=== PATIENT | male | born 1965 | race American Indian/Alaskan Native ===

== ENCOUNTER 2017-01-26 16:11 | Inpatient (IN) | payer MEDICAID ==
[2017-01-26 16:18] VITALS: BMI 24.7
--- NOTE | 2017-01-26 16:34 | C.PDOC ---
History Of Present Illness 51 year old male transferred to the ED from [facility] for admission to the psych floor. Patient is laying on the stretcher, states he has been having bad thoughts for some time. Patient denies nay other medical issues. Time Seen by Provider: 01/26/17 16:16 Chief Complaint (Nursing): Psychiatric Evaluation History Per: Patient, EMS History/Exam Limitations: no limitations Onset/Duration Of Symptoms: Days Current Symptoms Are (Timing): Still Present Suicide/Self Injury Attempted (Context): None Associated Symptoms: Depression, Suicidal Thoughts Involuntary Hold By: None Recent travel outside of the [place]: No Additional History Per: Patient, Other ([facility]) Past Medical History Reviewed: Historical Data, Nursing Documentation, Vital Signs Vital Signs: Last Vital Signs Temp 98.1 F 01/26/17 16:19 Pulse 77 01/26/17 16:19 Resp 20 01/26/17 16:19 BP 130/75 01/26/17 16:19 Pulse Ox 98 01/26/17 16:47 - Medical History PMH: Bipolar Disorder, Depression Denies: Chronic Kidney Disease Surgical History: No Surg Hx Family History: States: Unknown Family Hx - Social History Hx Alcohol Use: No Hx Substance Use: Yes - Immunization History Hx Tetanus Toxoid Vaccination: No Hx Influenza Vaccination: No Review Of Systems Constitutional: Negative for: Fever, Chills Cardiovascular: Negative for: Chest Pain Respiratory: Negative for: Cough, Shortness of Breath Gastrointestinal: Negative for: Nausea, Vomiting, Abdominal Pain Neurological: Negative for: Weakness, Numbness Psych: Positive for: Depression, Suicidal ideation Physical Exam - Physical Exam Appears: Non-toxic, Other (Flat affect) Skin: Normal Color, Warm, Dry Head: Atraumatic, Normacephalic Eye(s): bilateral: Normal Inspection Nose: No Discharge, No Deformity Oral Mucosa: Moist, No Drooling Tongue: Normal Appearing Lips: Normal Appearing Throat: Normal, No Erythema, No Exudate Neck: Normal ROM, Supple Chest: Symmetrical Cardiovascular: Rhythm Regular, No Murmur Respiratory: Normal Breath Sounds, No Rales, No Rhonchi, No Wheezing Gastrointestinal/Abdominal: Soft, No Tenderness, No Guarding, No Rebound Back: No CVA Tenderness Extremity: Normal ROM, No Pedal Edema, No Calf Tenderness, No Swelling Neurological/Psych: Oriented x3, Normal Speech, Normal Cognition Gait: Steady ED Course And Treatment O2 Sat by Pulse Oximetry: 98 (On RA) Pulse Ox Interpretation: Normal Progress Note: Case discussed with recreation worker who request admission to Dr Sorenson Reassessment Condition: Unchanged - Physician Consult Information Physician Contacted: Aleida Sorenson Outcome Of Conversation: admit Medical Decision Making Medical Decision Making: Impression : 51 y/o male transferred from [place] for psych admission. Patient will be admitted to psych for major depression under Dr. Sorenson Disposition Discussed With Dr.: Aleida Sorenson Doctor Will See Patient In The: Hospital - Disposition Disposition: HOSPITALIZED Disposition Time: 16:00 Condition: STABLE - POA Present On Arrival: None - Clinical Impression Clinical Impression: Moderate major depression, single episode - PA / [employer] / Resident Statement MD/DO has reviewed & agrees with the documentation as recorded. - Scribe Statement The provider has reviewed the documentation as recorded by the Scribe Olvin Boothe All medical record entries made by the Scribe were at my direction and personally dictated by me. I have reviewed the chart and agree that the record accurately reflects my personal performance of the history, physical exam, medical decision making, and the department course for this patient. I have also personally directed, reviewed, and agree with the discharge instructions and disposition. Decision To Admit - Pt Status Changed To: Hospital Disposition Of: Inpatient - Admit Certification Admit to Inpatient:: After my assessment, the patient will require hospitalization for at least two midnights. This is because of the severity of symptoms shown, intensity of services needed, and/or the medical risk in this patient being treated as an outpatient. - InPatient: Physician Admission Certification: I certify that this patient requires 2 or more midnights of care for the following reason:: Depression - . Bed Request Type: Psychiatry Patient Diagnosis: Moderate major depression, single episode
--- NOTE | 2017-01-26 17:31 | PCM.BM ---
<Ashley Andre - Last Filed: 01/26/17 17:28> Treatment Plan Problems - Problems identified on initial assessmt Depression Date Initiated: 01/26/17 Time Initiated: 17:29 Assessment reference: NA Status: Active Substance Abuse Date Initiated: 01/26/17 Time Initiated: 17:29 Assessment reference: NA Status: Active Treatment assets and liabiliti Patient Assests: adapts well, cooperative, ADL independent, physically healthy, negotiates basic needs, cognitively intact Patient Liabilities: live alone (Homeless), financial problems, poor support system, substance abuse (Opiates, Cocaine. Heroin 20 bags daily), medical problems (Hx Cardiac valve repair 2003) - Milieu Protocol Maintain good personal hygiene: daily Encourage regular showers, daily Remind patient to perform daily oral care, other Assist patient to perform ADL's (Self) Conduct patient checks and document Observation sheet: Q15 minutes (Safety) Maintain personal safety: every shift Educate patient to report safety concerns to staff, every shift Monitor environment for contraband/sharps Medication safety: Monitor for expected outcome, potential side effects: every shift, Assess barriers to learning: every shift, Assess readiness for medication education: every shift <Aleida Sorenson - Last Filed: 01/28/17 21:20> - Diagnosis (1) Major depressive disorder, recurrent severe without psychotic features Status: Acute Interventions: 01/28/17 21:20 * Assess/adjust medications daily and /or as needed * See patient on an individual basis 7x/week to assess symptoms of anxiety and depression * Educate patient regarding benefits, side effects and risks of prescribed medications * (2) Opioid use disorder, severe, dependence Status: Acute Interventions: 01/28/17 21:21 * Assess 7x/week regarding severity of withdrawal * Educate regarding risks, benefits, side effects and alternatives of medications * Use Motivational Interviewing for abstinence * Use CBT for relapse prevention * Medication management for withdrawal symptoms * Encourage medication assisted treatment * <Kimberly Ramon - Last Filed: 01/31/17 10:52> Family Contact Family involvement: Family/SO is involved Family contact: Patient declines to allow family contact at present Discharge/Continuing Care - Education Needs Education Needs: Patient Medication, Patient Coping Skills, Patient Placement options, Patient Community resources - Discharge Discharge Criteria: Tolerates medication w/o severe side effects, No longer exhibiting s/s of withdrawal, Reduction of target symptoms - Treatment Team Participation Discussed with Family/SO: No Was Patient/Family/SO present at Treatment Team Meeting: Yes
[2017-01-26] MEDS ORDERED: Aluminum Hydroxide/Magnesium Hydroxide Susp (30 mL) PO PRN (21:40)
--- NOTE | 2017-01-27 09:24 | PCM.PSYCH ---
Initial Psychiatric Evaluation - Initial Psychiatric Evaluation Type of Admission: Voluntary Legal Status: Capacity Chief Complaint (in patient's own words): I was feeling depressed and suicidal.' History of Present Illness and Precipitating Events: Patient is a 51-year-old AAM, who is currently unemployed and homeless, with h/ o depressive disorder and heroin abuse came to the ED with depressed mood and suicidal ideation. Patient states a long history of depressive disorder and heroin dependence. As per the patient he was recently discharged from [facility] few months ago and relapsed on heroin. Pt reports of abusing 20-25 bags daily, last used yesterday. He also reports of abusing xanax, 4-6 mg daily, last abused yesterday. Yesterday he became increasingly depressed and developed suicidal ideation, so he came to the hospital for further evaluation. Patient remained extremely depressed throughout the interview and states feelings of hopelessness , helplessness and worthlessness. He reports poor sleep and anhedonia. He also reports withdrawal symptoms i.e., sweating, headaches, anxiety, joint pains, nausea and abdominal cramps. However he denies any AVH or any psychotic symptoms. PMH: None reported Current Medications: Active Medications Generic Name Dose Route Start Last Admin Trade Name Freq PRN Reason Stop Dose Admin Al Hydrox/Mg Hydrox/Simethicone 30 ml 01/26/17 21:40 Maalox 30 Ml PO TID PRN Indigestion / Heartburn Clonidine HCl 0.1 mg 01/26/17 17:20 01/26/17 23:03 Catapres PO 0.1 mg Q6 PRN Administration WITHDRAWAL SYMPTOMS Hydroxyzine HCl 25 mg 01/26/17 21:42 Atarax PO Q6 PRN Anxiety Loperamide HCl 2 mg 01/26/17 21:40 Imodium PO Q8 PRN Diarrhea Methadone HCl 20 mg 01/27/17 10:00 01/27/17 09:12 Methadone PO 01/31/17 09:59 20 mg DAILY MYRANDA Administration Taper Ondansetron HCl 4 mg 01/26/17 21:40 01/27/17 09:19 Zofran Tab PO 4 mg Q8 PRN Administration Nausea/Vomiting Pneumococcal Polyvalent Vaccine 0.5 ml 01/29/17 10:00 Pneumovax 23 Vaccine IM 01/29/17 10:01 .ONCE ONE Trazodone HCl 50 mg 01/26/17 22:00 01/26/17 22:06 Desyrel PO 50 mg HS MYRANDA Administration Past Psychiatric History - Past Psychiatric History Previous Treatment History: Inpatient Pertinent Medical Hx (Current Medical&Sleep Prob, Allergies): Allergies Allergy/AdvReac Type Severity Reaction Status Date / Time sertraline [From Zoloft] Allergy VOMITING Verified 01/26/17 16:26 No Known Home Med 01/26/17 Review of Systems - Review of Systems All systems: reviewed and no additional remarkable complaints except - Psychiatric Psychiatric: Anxiety, Depression, Hopelessness, Irritability, Suicidal Ideation Mental Status Examination - Personal Presentation Personal Presentation: Looks stated age - Affect Affect: Constricted, Depressed - Motor Activity Motor Activity: Calm - Reliability in Providing Information Reliability in Providing Information: Fair - Speech Speech: Organized - Mood Mood: Depressed, Anxious - Formal Thought Process Formal Thought Process: No Impairment - Obsessions/Compulsions Obsessions: No Compulsions: No - Cognitive Functions Orientation: Person, Place, Situation, Time Sensorium: Alert Attention/Concentration: Attentive Abstract Thinking: [place] Estimate of Intelligence: Below average Judgement: Imparied, as evidence by: Poor judgement, Imparied, as evidence by: Lack of insight into illness - Risk Risk: Suicidal, Withdrawal, Diminished functioning - Limitations Limitations: Living alone DSM 5 DX - DSM 5 DSM 5 Diagnosis: Major depressive disorder recurrent severe without psychotic features Opioid use disorder severe Opioid withdrawal Sedative/ hypnotic use disorder moderate - Recommended/Plan of Treatment Treatment Recommendations and Plan of Treatment: Major depressive disorder recurrent severe without psychotic features CBT Psychoeducation Supportive therapy, group therapy, individual therapy Gabapentin 300 mg PO BID Paxil 10 mg by mouth daily Trazodone 50 mg by mouth daily at bedtime Opioid use disorder severe CBT Psychoeducation Supportive therapy, individual therapy Use [place] for abstinence Opioid withdrawal CBT Psychoeducation Supportive therapy, individual therapy Clonidine when necessary Methadone taper Sedative/ hypnotic use disorder moderate CBT Psychoeducation Supportive therapy, individual therapy Monitor signs and symptoms Use [place] for abstinence - Smoking Cessation Smoking Cessation Initiated: No
--- NOTE | 2017-01-28 15:27 | PCM.PYCHPN ---
Psychiatric Progress Note - Psychiatric Progress Note Patient seen today, length of contact: 17 min Patient Chief Complaint: "I'm not too bad" Problems Identified/Issues Discussed: This patient was seen, chart reviewed, and case discussed with staff. Patient reports that his sleep was okay. Pt states that his appetite is returning. He states that he is still experiencing depressed mood and feelings of hopelessness and helplessness. He denies suicidal ideations and homicidal ideations. He denies any auditory or visual hallucination. Patient appears slightly disheveled. He is cooperative. Pt has been participating in groups and has been interacting with the staff and other patients. Patient is compliant with medications and denies any side effects. Symptoms are improving but need more time to stabilize. Support and psychoeducation given. Medication Change: Yes (methaodne taper) Medical Record Reviewed: Yes Mental Status Examination - Cognitive Function Orientation: Person, Place, Situation, Time Memory: Intact Attention: WNL Concentration: Poor Association: WNL Fund of Knowledge: WNL - Mood Mood: Depressed, Anxious - Affect Affect: Constricted - Speech Speech: Soft - Formal Thought Process Formal Thought Process: No Impairment - Suicidal Ideation Suicidal Ideation: No - Homicidal Ideation Homicidal Ideation: No Goal/Treatment Plan - Goal/Treatment Plan Need for Continued Stay: Severe depression anxiety, Discharge may exacerbated symptoms, Severe functional impairment Progress Toward Problem(s) and Goals/Treatment Plan: Major depressive disorder recurrent severe without psychotic features CBT Psychoeducation Supportive therapy, group therapy, individual therapy Gabapentin 300 mg PO BID Paxil 10 mg by mouth daily Trazodone 50 mg by mouth daily at bedtime Opioid use disorder severe CBT Psychoeducation Supportive therapy, individual therapy Use [place] for abstinence Opioid withdrawal CBT Psychoeducation Supportive therapy, individual therapy Clonidine when necessary Methadone taper Sedative/ hypnotic use disorder moderate CBT Psychoeducation Supportive therapy, individual therapy Monitor signs and symptoms Use [place] for abstinence - Smoking Cessation Smoking Cessation Initiated: No
[2017-01-29] MEDS ORDERED: Influenza Vaccine 60 mcg/0.5 mL SYR (4YR UP) IM ONE (10:00)
[2017-01-29] MEDS ORDERED: Pneumococcal 23-Valent Vaccine IM ONE (10:00)
--- NOTE | 2017-01-29 12:01 | PCM.PYCHPN ---
Psychiatric Progress Note - Psychiatric Progress Note Patient seen today, length of contact: 17 min Patient Chief Complaint: "I'm not too bad" Problems Identified/Issues Discussed: This patient was seen, chart reviewed, and case discussed with staff. Patient reports that his sleep was okay. Pt states that his appetite is returning. He states that he is still experiencing depressed mood and feelings of hopelessness and helplessness. He denies suicidal ideations and homicidal ideations. He denies any auditory or visual hallucination. Patient appears slightly disheveled. He is cooperative. Pt has been participating in groups and has been interacting with the staff and other patients. Patient is compliant with medications and denies any side effects. Symptoms are improving but need more time to stabilize. Support and psychoeducation given. Medication Change: Yes (methaodne taper) Medical Record Reviewed: Yes Mental Status Examination - Cognitive Function Orientation: Person, Place, Situation, Time Memory: Intact Attention: WNL Concentration: Poor Association: WNL Fund of Knowledge: WNL - Mood Mood: Depressed, Anxious - Affect Affect: Constricted - Speech Speech: Soft - Formal Thought Process Formal Thought Process: No Impairment - Suicidal Ideation Suicidal Ideation: No - Homicidal Ideation Homicidal Ideation: No Goal/Treatment Plan - Goal/Treatment Plan Need for Continued Stay: Severe depression anxiety, Discharge may exacerbated symptoms, Severe functional impairment Progress Toward Problem(s) and Goals/Treatment Plan: Major depressive disorder recurrent severe without psychotic features CBT Psychoeducation Supportive therapy, group therapy, individual therapy Gabapentin 300 mg PO BID Paxil 10 mg by mouth daily Trazodone 50 mg by mouth daily at bedtime Opioid use disorder severe CBT Psychoeducation Supportive therapy, individual therapy Use [place] for abstinence Opioid withdrawal CBT Psychoeducation Supportive therapy, individual therapy Clonidine when necessary Methadone taper Sedative/ hypnotic use disorder moderate CBT Psychoeducation Supportive therapy, individual therapy Monitor signs and symptoms Use [place] for abstinence
--- NOTE | 2017-02-02 09:29 | PCM.PYCHPN ---
Psychiatric Progress Note - Psychiatric Progress Note Patient seen today, length of contact: 17 min Patient Chief Complaint: "I'm still feeling depressed" Problems Identified/Issues Discussed: This patient was seen, chart reviewed, and case discussed with staff. Patient reports improvement in his mood, and improvement in the feelings of hopelessness and helplessness. He also reports improvement in the withdrawal symptoms. He denies any auditory or visual hallucination. Pt has been participating in groups and has been interacting with the staff and other patients. He wants to go to the [facility] for inpt rehab. Patient is compliant with medications and denies any side effects. Symptoms are improving but need more time to stabilize. Support and psychoeducation given. Medication Change: Yes (methaodne taper, increase paxil) Medical Record Reviewed: Yes Mental Status Examination - Cognitive Function Orientation: Person, Place, Situation, Time Memory: Intact Attention: WNL Concentration: Poor Association: WNL Fund of Knowledge: WNL - Mood Mood: Depressed, Anxious - Affect Affect: Constricted - Speech Speech: Soft - Formal Thought Process Formal Thought Process: No Impairment - Suicidal Ideation Suicidal Ideation: No - Homicidal Ideation Homicidal Ideation: No Goal/Treatment Plan - Goal/Treatment Plan Need for Continued Stay: Severe depression anxiety, Discharge may exacerbated symptoms, Severe functional impairment Progress Toward Problem(s) and Goals/Treatment Plan: Major depressive disorder recurrent severe without psychotic features CBT Psychoeducation Supportive therapy, group therapy, individual therapy Gabapentin 300 mg PO BID Paxil 200 mg by mouth daily Trazodone 50 mg by mouth daily at bedtime Opioid use disorder severe CBT Psychoeducation Supportive therapy, individual therapy Use [place] for abstinence Opioid withdrawal CBT Psychoeducation Supportive therapy, individual therapy Clonidine when necessary Methadone taper Sedative/ hypnotic use disorder moderate CBT Psychoeducation Supportive therapy, individual therapy Monitor signs and symptoms Use [place] for abstinence - Smoking Cessation Smoking Cessation Initiated: No
--- NOTE | 2017-02-03 22:19 | PCM.PYCHPN ---
Psychiatric Progress Note - Psychiatric Progress Note Patient seen today, length of contact: 15 minute Patient Chief Complaint: I am feeling much better. Problems Identified/Issues Discussed: Patient seen, chart reviewed, case discussed with the staff. Issues related to illness and treatment were discussed with the patient and staff. Reported compliant with treatment with no adverse effects. Feeling much better. Aftercare discussed with the patient. Patient was awake, alert and oriented 3. Denied any delusions, auditory or visual hallucinations, suicidal ideations or homicidal ideations at the time of evaluation.. Diagnostic Results: Reviewed DSM 5 Symptoms Update: Improving with treatment Medication Change: No Medical Record Reviewed: Yes Mental Status Examination - Cognitive Function Orientation: Person, Place, Situation, Time Memory: Intact Attention: WNL Concentration: WNL Association: [facility] Fund of Knowledge: [facility] Decription of patient's judgement and insights: Fair - Mood Mood: Depressed (Much less than before) - Affect Affect: Other (Appropriate) - Speech Speech: Soft - Formal Thought Process Formal Thought Process: No Impairment Psychotic Thoughts and Behaviors: None - Suicidal Ideation Suicidal Ideation: No - Homicidal Ideation Homicidal Ideation: No Goal/Treatment Plan - Goal/Treatment Plan Need for Continued Stay: Remain at risks for inpatient hospitalization, Discharge may exacerbated symptoms, Severe functional impairment Progress Toward Problem(s) and Goals/Treatment Plan: Patient education Supportive therapy Continue treatment as before Patient will go to [facility] for follow-up care after discharge from the hospital. Estimated Date of D/C: 02/05/17 - Smoking Cessation Smoking Cessation Initiated: No
--- NOTE | 2017-02-04 10:30 | PCM.BM ---
<Kimberly Ramon - Last Filed: 02/04/17 10:30> Treatment Plan Problems - Problems identified on initial assessmt Depression Date Initiated: 01/26/17 Time Initiated: Assessment reference: NA Status: Active Substance Abuse Date Initiated: 01/26/17 Time Initiated: Assessment reference: NA Status: Active Treatment assets and liabiliti Patient Assests: adapts well, cooperative, ADL independent, physically healthy, negotiates basic needs, cognitively intact Patient Liabilities: live alone (Homeless), financial problems, poor support system, substance abuse (Opiates, Cocaine. Heroin 20 bags daily), medical problems (Hx Cardiac valve repair 2003) - Milieu Protocol Maintain good personal hygiene: daily Encourage regular showers, daily Remind patient to perform daily oral care, other Assist patient to perform ADL's (Self) Conduct patient checks and document Observation sheet: Q15 minutes (Safety) Maintain personal safety: every shift Educate patient to report safety concerns to staff, every shift Monitor environment for contraband/sharps Medication safety: Monitor for expected outcome, potential side effects: every shift, Assess barriers to learning: every shift, Assess readiness for medication education: every shift Milieu Narrative: Patient education Supportive therapy Continue treatment as before Patient will go to [facility] for follow-up care after discharge from the hospital. Family Contact Family involvement: Family/SO is involved Family contact: Patient declines to allow family contact at present Discharge/Continuing Care - Education Needs Education Needs: Patient Medication, Patient Coping Skills, Patient Placement options, Patient Community resources - Discharge Discharge Criteria: Tolerates medication w/o severe side effects, No longer exhibiting s/s of withdrawal, Reduction of target symptoms - Treatment Team Participation Patient/Family/SO Statement: Patient education Supportive therapy Continue treatment as before Patient will go to [facility] for follow-up care after discharge from the hospital. Discussed with Family/SO: No Was Patient/Family/SO present at Treatment Team Meeting: Yes Treatment Plan Review - Problem Depression Time Initiated: Substance Abuse Time Initiated: - Discharge / Continuing Care Discharge to:: Substance Abuse Rehab Behavioral Health Services: Residential treatment Health Needs: Medications/Rx, Alcohol/Drug treatment <Aleida Sorenson - Last Filed: 02/04/17 11:13> - Diagnosis (1) Major depressive disorder, recurrent severe without psychotic features Status: Acute Interventions: 02/04/17 11:13 * Assess/adjust medications daily and /or as needed * See patient on an individual basis 7x/week to assess symptoms of depression * Monitor for side effects & effectiveness of medications * (2) Opioid use disorder, severe, dependence Status: Acute Interventions: 02/04/17 11:13 * Assess 7x/week regarding severity of withdrawal * Educate regarding risks, benefits, side effects and alternatives of medications * Use Motivational Interviewing for abstinence * Use CBT for relapse prevention * Medication management for withdrawal symptoms * Encourage medication assisted treatment * <Sheri Ulloa - Last Filed: 02/05/17 11:42> Treatment Plan Review - Problem Depression Date Initiated: 02/05/17 Time Initiated: 11:41 Progress toward outcomes: improved Substance Abuse Date Initiated: 02/05/17 Time Initiated: 11:41 Progress toward outcomes: improved
[2017-02-05 07:41] VITALS: RESP 20; TEMP 97.6; O2SAT 96
[2017-02-05 16:23] VITALS: BP 138/87; PULSE 68
--- NOTE | 2017-02-05 21:37 | PCM.PYCHPN ---
Psychiatric Progress Note - Psychiatric Progress Note Patient seen today, length of contact: 15 minute Patient Chief Complaint: "I'm still feeling depressed" Problems Identified/Issues Discussed: This patient was seen, chart reviewed, and case discussed with staff. Patient reports improvement in his mood, and improvement in the feelings of hopelessness and helplessness. He also reports improvement in the withdrawal symptoms. He denies any auditory or visual hallucination. Pt has been participating in groups and has been interacting with the staff and other patients. He wants to go to the [facility] for inpt rehab. Patient is compliant with medications and denies any side effects. Symptoms are improving but need more time to stabilize. Support and psychoeducation given. Medication Change: No Medical Record Reviewed: Yes Mental Status Examination - Cognitive Function Orientation: Person, Place, Situation, Time Memory: Intact Attention: WNL Concentration: WNL Association: WNL Fund of Knowledge: WN - Mood Mood: Depressed (Much less than before) - Affect Affect: Other (Appropriate) - Speech Speech: Soft - Formal Thought Process Formal Thought Process: No Impairment - Suicidal Ideation Suicidal Ideation: No - Homicidal Ideation Homicidal Ideation: No Goal/Treatment Plan - Goal/Treatment Plan Need for Continued Stay: Remain at risks for inpatient hospitalization, Discharge may exacerbated symptoms, Severe functional impairment Progress Toward Problem(s) and Goals/Treatment Plan: Major depressive disorder recurrent severe without psychotic features CBT Psychoeducation Supportive therapy, group therapy, individual therapy Gabapentin 300 mg PO BID Paxil 200 mg by mouth daily Trazodone 50 mg by mouth daily at bedtime Opioid use disorder severe CBT Psychoeducation Supportive therapy, individual therapy Use [place] for abstinence Opioid withdrawal CBT Psychoeducation Supportive therapy, individual therapy Clonidine when necessary Methadone taper Sedative/ hypnotic use disorder moderate CBT Psychoeducation Supportive therapy, individual therapy Monitor signs and symptoms Use [place] for abstinence Estimated Date of D/C: 02/05/17
--- NOTE | 2017-02-05 21:45 | PCM.PYCHPN ---
Psychiatric Progress Note - Psychiatric Progress Note Patient seen today, length of contact: 15 minute Patient Chief Complaint: "I'm still feeling depressed" Problems Identified/Issues Discussed: This patient was seen, chart reviewed, and case discussed with staff. Patient reports improvement in his mood, and improvement in the feelings of hopelessness and helplessness. He also reports improvement in the withdrawal symptoms. He denies any auditory or visual hallucination. Pt has been participating in groups and has been interacting with the staff and other patients. He wants to go to the [facility] for inpt rehab. Patient is compliant with medications and denies any side effects. Symptoms are improving but need more time to stabilize. Support and psychoeducation given. Medication Change: No Medical Record Reviewed: Yes Mental Status Examination - Cognitive Function Orientation: Person, Place, Situation, Time Memory: Intact Attention: WNL Concentration: WNL Association: WNL Fund of Knowledge: WN - Mood Mood: Depressed (Much less than before) - Affect Affect: Other (Appropriate) - Speech Speech: Soft - Formal Thought Process Formal Thought Process: No Impairment - Suicidal Ideation Suicidal Ideation: No - Homicidal Ideation Homicidal Ideation: No Goal/Treatment Plan - Goal/Treatment Plan Need for Continued Stay: Remain at risks for inpatient hospitalization, Discharge may exacerbated symptoms, Severe functional impairment Progress Toward Problem(s) and Goals/Treatment Plan: Major depressive disorder recurrent severe without psychotic features CBT Psychoeducation Supportive therapy, group therapy, individual therapy Gabapentin 300 mg PO BID Paxil 200 mg by mouth daily Trazodone 50 mg by mouth daily at bedtime Opioid use disorder severe CBT Psychoeducation Supportive therapy, individual therapy Use [place] for abstinence Opioid withdrawal CBT Psychoeducation Supportive therapy, individual therapy Clonidine when necessary Methadone taper Sedative/ hypnotic use disorder moderate CBT Psychoeducation Supportive therapy, individual therapy Monitor signs and symptoms Use [place] for abstinence Estimated Date of D/C: 02/05/17
--- NOTE | 2017-02-06 10:50 | PCM.PYCHDC ---
Mental Status Examination - Mental Status Examination Orientation: Person, Place, Situation, Time Memory: Intact Mood: Neutral Affect: Constricted Speech: Soft Attention: WNL Concentration: WNL Association: WNL Fund of Knowledge: WNL Formal Thought Process: No Impairment Description of patient's judgement and insight: GOOD, FAIR Psychotic Thoughts and Behaviors: denies any AVH Suicidal Ideation: No Current Homicidal Ideation?: No Discharge Summary - Discharge Note Reason for Hospitalization: Patient is a 51-year-old AAM, who is currently unemployed and homeless, with h/ o depressive disorder and heroin abuse came to the ED with depressed mood and suicidal ideation. Patient states a long history of depressive disorder and heroin dependence. As per the patient he was recently discharged from [facility] few months ago and relapsed on heroin. Pt reports of abusing 20-25 bags daily, last used yesterday. He also reports of abusing xanax, 4-6 mg daily, last abused yesterday. Yesterday he became increasingly depressed and developed suicidal ideation, so he came to the hospital for further evaluation. Patient remained extremely depressed throughout the interview and states feelings of hopelessness , helplessness and worthlessness. He reports poor sleep and anhedonia. He also reports withdrawal symptoms i.e., sweating, headaches, anxiety, joint pains, nausea and abdominal cramps. However he denies any AVH or any psychotic symptoms. Consultations:: List each consultation separately and include: 1. Reason for request. 2. Findings. 3. Follow-up Summary of Hospital Course include:: 1. Description of specific treatment plan utilized for patients during their course of treatmen. 2. Summarize the time- course for resolution of acute symptoms and/or regressed behaviors. 3. Describe issues identified and worked on during hospitalization. 4. Describe medication utilized. 5. Describe medical problems identified and treated. 6. Reassessment of suicide risk Summary of Hospital Course: During the course of his stay, patient (pt) started progressively improving and he no longer remained irritable, depressed, and suicidal. His mood and anxiety were improved and he started attending groups and meetings and started socializing. Patient denied any feelings of hopelessness, helplessness, and worthlessness, denied any problem with the sleep or appetite, denied suicidal ideation or homicidal ideation. Pt denied any auditory or visual hallucinations. Some changes were made in his current medications and patient was discharged on following medications. He tolerated these medications very well and denied any side effects. Pt is to attend [facility] rehab in [place] today and will follow-up with [facility] on 02/26/17 at 9:30 a.m. - Diagnosis (1) Major depressive disorder, recurrent severe without psychotic features Status: Acute (2) Opioid use disorder, severe, dependence Status: Acute - Final Diagnosis (DSM 5) Condition upon Discharge: STABLE DSM 5: Major depressive disorder recurrent severe without psychotic features Opioid use disorder severe Opioid withdrawal Sedative/ hypnotic use disorder moderate Disposition: HOME/ ROUTINE Follow-up Treatment Plan: Education: Pt was educated and counseled about the risks and benefits of taking and not taking medications. Pt was educated and counseled about the risks of drinking and abusing drugs. Pt was educated and counseled to go to the ER or call 911 if pt develop suicidal ideation or homicidal ideation, worsening of symptoms or severe side effects of the meds. Prescriptions/Medication Reconciliation: Gabapentin [Neurontin] 300 mg PO BID #60 cap PARoxetine [Paxil] 40 mg PO DAILY #30 tab traZODone [Desyrel] 50 mg PO HS #30 tab - Smoking Cessation Smoking Cessation Medication prescribed: No - Antipsychotic Medications Pt discharged on 2 or more routine antipsychotic medications: No
== END 2017-02-06 12:40 | disposition home or self-care (01) | DRG 430 ==
LOC: C.ER 16:11 → C.9E 16:27 → C.5E 16:43
PROVIDERS: ADMIT Psychiatry & Neurology Psychiatry; ATTEND Psychiatry & Neurology Psychiatry
PROC: GZ3ZZZZ Medication Management (ICD-10-PCS; principal; 2017-01-26)
PROC: GZHZZZZ Group Psychotherapy (ICD-10-PCS; 2017-01-26)
PROC: GZ56ZZZ Individual Psychotherapy, Supportive (ICD-10-PCS; 2017-01-26)
PROC: HZ2ZZZZ Detoxification Services for Substance Abuse Treatment (ICD-10-PCS; 2017-01-26)
PROC: HZ59ZZZ Individual Psychotherapy for Substance Abuse Treatment, Supportive (ICD-10-PCS; 2017-01-26)
DX: F33.2 Major depressive disorder, recurrent severe without psychotic features (principal); R45.851 Suicidal ideations; F11.23 Opioid dependence with withdrawal; F13.10 Sedative, hypnotic or anxiolytic abuse, uncomplicated; F31.9 Bipolar disorder, unspecified; F41.9 Anxiety disorder, unspecified; F17.210 Nicotine dependence, cigarettes, uncomplicated; Z59.0 Homelessness

== ENCOUNTER 2018-05-19 16:53 | Inpatient (IN) | payer OTHER, MEDICAID ==
--- NOTE | 2018-05-19 17:34 | C.PDOC ---
History Of Present Illness 52 y/o male with a PMHx of CAD, valve replacement, hx of depression in the past, stopped taking his antidepressant 1 year ago, presents today complaining of feeling depressed with suicidal ideation for the last 3 months. + Plan. At p resent time, pt Denies any active physical complaints, denies headache, dizziness, CP, SOB, dyspnea, palpitation,a bd. pain, N/V. Appears AAO#3, not in any apparent distress. <Patricia Hamilton - Last Filed: 05/19/18 18:57> History Per: Patient History/Exam Limitations: no limitations Onset/Duration Of Symptoms: Days Current Symptoms Are (Timing): Still Present Associated Symptoms: Depression, Suicidal Thoughts, Suicidal Plan <Patricia Hamilton - Last Filed: 05/19/18 18:57> <Oren Fry - Last Filed: 05/20/18 02:02> Time Seen by Provider: 05/19/18 16:56 Chief Complaint (Nursing): Psychiatric Evaluation Past Medical History Reviewed: Historical Data, Nursing Documentation, Vital Signs - Medical History PMH: Bipolar Disorder, Depression Denies: Chronic Kidney Disease - [facility] DETOXIFICATION SERVICES FOR SUBSTANCE ABUSE TREATMENT (01/26/17) GROUP PSYCHOTHERAPY (01/26/17) INDIV PSYCHOTHERAPY FOR SUBSTANCE ABUSE TREATMENT, SUPPORT (01/26/17) INDIVIDUAL PSYCHOTHERAPY, SUPPORTIVE (01/26/17) MEDICATION MANAGEMENT (01/26/17) Family History: States: Unknown Family Hx - Social History Hx Alcohol Use: No Hx Substance Use: Yes - Immunization History Hx Tetanus Toxoid Vaccination: No Hx Influenza Vaccination: No <Patricia Hamilton - Last Filed: 05/19/18 18:57> Vital Signs: Last Vital Signs Temp 98.4 F 05/19/18 21:09 Pulse 63 05/19/18 21:09 Resp 18 05/19/18 21:09 BP 117/63 05/19/18 21:09 Pulse Ox 95 05/19/18 21:09 - [facility] DETOXIFICATION SERVICES FOR SUBSTANCE ABUSE TREATMENT (01/26/17) GROUP PSYCHOTHERAPY (01/26/17) INDIV PSYCHOTHERAPY FOR SUBSTANCE ABUSE TREATMENT, SUPPORT (01/26/17) INDIVIDUAL PSYCHOTHERAPY, SUPPORTIVE (01/26/17) MEDICATION MANAGEMENT (01/26/17) <Oren Fry - Last Filed: 05/20/18 02:02> Review Of Systems Except As Marked, All Systems Reviewed And Found Negative. Constitutional: Negative for: Fever, Chills Cardiovascular: Negative for: Chest Pain Respiratory: Negative for: Shortness of Breath Gastrointestinal: Negative for: Vomiting, Abdominal Pain Genitourinary: Negative for: Dysuria, Hematuria Musculoskeletal: Negative for: Back Pain Neurological: Negative for: Weakness, Numbness, Dizziness Psych: Positive for: Depression, Suicidal ideation (with +plan) <Patricia Hamilton - Last Filed: 05/19/18 18:57> Physical Exam - Physical Exam Appears: Non-toxic, No Acute Distress Skin: Normal Color, Warm Head: Normacephalic Eye(s): bilateral: PERRL Oral Mucosa: Moist Neck: Trachea Midline, Supple Cardiovascular: Rhythm Regular, No Murmur, No JVD Respiratory: No Decreased Breath Sounds, No Accessory Muscle Use, No Rhonchi, No Wheezing, No Plerual Rub Gastrointestinal/Abdominal: Soft, No Tenderness, No Distention Back: No CVA Tenderness Extremity: No Pedal Edema, No Swelling Neurological/Psych: Oriented x3, Normal Speech Gait: Steady <Patricia Hamilton - Last Filed: 05/19/18 18:57> ED Course And Treatment - Laboratory Results Result Diagrams: 05/19/18 17:36 05/19/18 17:36 Lab Interpretation: No Acute Changes ECG: Interpreted By Me, Viewed By Me ECG Interpretation: Abnormal Interpretation Of ECG: SR@58/min, NAD, RBBB, T wave inversion in II, III, AVF. No previous EKg available O2 Sat by Pulse Oximetry: 98 Pulse Ox Interpretation: Normal Progress Note: Labs and EKG ordered for medical clearance. Pt placed on 1:1 OBS, pending crisis eval. Blood work review, appears without acute abnormalities. Troponin I- negative. EKg review and appears abnormal, no previous study available to compare. Case discussed with , SInce pt is asymptomatic , pt is med cleared with optional med consult. Case discussed with and consult placed. Pt is med cleared for psych eval. <Patricia Hamilton - Last Filed: 05/19/18 18:57> - Laboratory Results Result Diagrams: 05/19/18 17:36 05/19/18 17:36 Lab Results: Troponin I < 0.0120 ng/mL (0.00-0.120) 05/19/18 17:36 Total Bilirubin 0.3 mg/dL (0.2-1.3) 05/19/18 17:36 AST 20 U/L (17-59) 05/19/18 17:36 ALT 24 U/L (21-72) 05/19/18 17:36 Alkaline Phosphatase 54 U/L (38-126) 05/19/18 17:36 Total Protein 6.7 g/dL (6.3-8.3) 05/19/18 17:36 Albumin 4.0 g/dL (3.5-5.0) 05/19/18 17:36 Globulin 2.8 gm/dL (2.2-3.9) 05/19/18 17:36 Albumin/Globulin Ratio 1.4 (1.0-2.1) 05/19/18 17:36 Urine Color Yellow (YELLOW) 05/19/18 19:11 Urine Clarity Clear (Clear) 05/19/18 19:11 Urine pH 5.0 (5.0-8.0) 05/19/18 19:11 Ur Specific [place] 1.025 (1.003-1.030) 05/19/18 19:11 Urine Protein Negative mg/dL (NEGATIVE) 05/19/18 19:11 Urine Glucose (UA) Normal mg/dL (Normal) 05/19/18 19:11 Urine Ketones Negative mg/dL (NEGATIVE) 05/19/18 19:11 Urine Blood Negative (NEGATIVE) 05/19/18 19:11 Urine Nitrate Negative (NEGATIVE) 05/19/18 19:11 Urine Bilirubin Negative (NEGATIVE) 05/19/18 19:11 Urine Urobilinogen Normal mg/dL (0.2-1.0) 05/19/18 19:11 Ur Leukocyte Esterase Neg Joe/uL (Negative) 05/19/18 19:11 Urine WBC (Auto) 1 /hpf (0-5) 05/19/18 19:11 Urine RBC (Auto) 1 /hpf (0-3) 05/19/18 19:11 <Oren Fry - Last Filed: 05/20/18 02:02> Medical Decision Making Medical Decision Making: case endorsed pending crisis eval. accepted dr woodruff <Oren Fry - Last Filed: 05/20/18 02:02> Disposition - Disposition Disposition Time: 18:37 <Patricia Hamilton - Last Filed: 05/19/18 18:57> <Oren Fry - Last Filed: 05/20/18 02:02> - Disposition Disposition: HOSPITALIZED Condition: STABLE - Clinical Impression Clinical Impression: Moderate major depression, single episode, Suicide attempt, EKG, abnormal - PA / RN SUPPLEMENTAL / Resident Statement MD/DO has reviewed & agrees with the documentation as recorded. - Scribe Statement The provider has reviewed the documentation as recorded by the Scribe Nancy Mata All medical record entries made by the Scribe were at my direction and personally dictated by me. I have reviewed the chart and agree that the record accurately reflects my personal performance of the history, physical exam, medical decision making, and the department course for this patient. I have also personally directed, reviewed, and agree with the discharge instructions and disposition. <Patricia Hamilton - Last Filed: 05/19/18 18:57> Physician Patient Turnover Patient Signed Over To: Oren Fry Handoff Comments: PES eval, dispo <Patricia Hamilton - Last Filed: 05/19/18 18:57> Decision To Admit <Patricia Hamilton - Last Filed: 05/19/18 18:57> - Pt Status Changed To: Hospital Disposition Of: Inpatient - Admit Certification Admit to Inpatient:: After my assessment, the patient will require hospitalization for at least two midnights. This is because of the severity of symptoms shown, intensity of services needed, and/or the medical risk in this patient being treated as an outpatient. - InPatient: Physician Admission Certification: I certify that this patient requires 2 or more midnights of care for the following reason:: needs detox - . Bed Request Type: Psychiatry Admitting Physician: José Woodruff <Oren Fry - Last Filed: 05/20/18 02:02> - . Patient Diagnosis: Moderate major depression, single episode, Suicide attempt, EKG, abnormal
[2018-05-19 17:40] LABS: BASO % 0.6 % (0.0-2.0); EOS # 0.1 K/uL (0.0-0.7); HEMOGLOBIN 14.1 g/dL (12.0-18.0); LYMPH # 1.9 K/uL (1.0-4.3); LYMPH % 25.8 % (20.0-40.0); MEAN CELL VOLUME 90.3 fL (80.0-94.0); MEAN CORPUSCULAR HEMOGLOBIN 30.7 pg (27.0-31.0); MEAN PLATELET VOLUME 8.6 fL (7.2-11.7); MONO # 0.5 K/uL (0.0-0.8); MONO % 6.3 % (0.0-10.0); NEUT % 66.3 % (50.0-75.0); NRBC % 0.1 % (0.0-2.0); RBC 4.6 Mil/uL (4.40-5.90); RED CELL DISTRIBUTION WIDTH 13.8 % (11.5-14.5); WHITE BLOOD COUNT 7.5 K/uL (4.8-10.8)
[2018-05-19 17:56] LABS: ALB/GLOB RATIO 1.4 (1.0-2.1); ALT/SGPT 24 U/L (21-72); AST/SGOT 20 U/L (17-59); BLOOD UREA NITROGEN 11 mg/dL (9-20); CALCIUM 9.1 mg/dl (8.6-10.4); GFR NON-AFRICAN AMERICAN > 60
[2018-05-19 19:26] LABS: URINE BILIRUBIN NEGATIVE (NEGATIVE); URINE BLOOD NEGATIVE (NEGATIVE); URINE CLARITY Clear (Clear); URINE COLOR Yellow (YELLOW); URINE GLUCOSE (UA) NORMAL (Normal); URINE LEUKOCYTE ESTERASE NEG Leu/uL (Negative); URINE PROTEIN NEGATIVE (NEGATIVE); URINE UROBILINOGEN NORMAL mg/dL (0.2-1.0)
[2018-05-19 19:33] LABS: BARBITURATES, UR NEGATIVE (NEGATIVE); BENZODIAZEPINES, UR NEGATIVE (NEGATIVE); PHENCYCLIDINE, UR NEGATIVE (NEGATIVE)
[2018-05-19 19:49] LABS: OPIATES, UR POSITIVE (NEGATIVE)
[2018-05-19 21:11] VITALS: O2SAT 95
[2018-05-19] MEDS ORDERED: Aluminum Hydroxide/Magnesium Hydroxide Susp (30 mL) PO PRN (22:21)
--- NOTE | 2018-05-19 22:31 | PCM.BM ---
<Gatito Fortune - Last Filed: 05/19/18 22:29> Treatment Plan Problems - Problems identified on initial assessmt Helplessness/Hopelessness Date Initiated: 05/19/18 Time Initiated: 22:29 Assessment reference: NA Status: Active Anxiety related to substance abuse Date Initiated: 05/19/18 Time Initiated: 22:30 Assessment reference: NA Status: Active Treatment assets and liabiliti Patient Assests: adapts well, cooperative, ADL independent, physically healthy, negotiates basic needs, cognitively intact Patient Liabilities: live alone (Homeless), substance abuse (Heroin, alocohol and marijuana), medical problems (Cardiac valve surgery) - Milieu Protocol Maintain good personal hygiene: daily Encourage regular showers, daily Remind patient to perform daily oral care, every shift Assist patient to perform ADL's Conduct patient checks and document Observation sheet: Q15 minutes (For safety) Maintain personal safety: every shift Educate patient to report safety concerns to staff, every shift Monitor environment for contraband/sharps Medication safety: Monitor for expected outcome, potential side effects: every shift, Assess barriers to learning: every shift, Assess readiness for medication education: every shift <Cheryle Gonzalez - Last Filed: 05/21/18 12:09> Family Contact Family involvement: Patient does not wish Family/SO involvement Family contact: Patient declines to allow family contact at present - Goals for Treatment Patient goals for treatment: "I want to go to an outpatient program." Discharge/Continuing Care - Education Needs Education Needs: Patient Medication, Patient Diagnosis/Disease Process, Patient Coping Skills, Patient Placement options, Patient Community resources - Discharge Discharge Criteria: Free of Suicidal thoughts, Normal sleep pattern, Ability to care for self, No longer exhibiting s/s of withdrawal, Reduction of target symptoms Discharge to:: Home - Treatment Team Participation Discussed with Family/SO: No Was Patient/Family/SO present at Treatment Team Meeting: Yes
--- NOTE | 2018-05-20 09:41 | RAD ---
Date of service: 05/19/2018 HISTORY: ekg abd COMPARISON: No prior. TECHNIQUE: 1 view obtained. FINDINGS: LUNGS: No active pulmonary disease. PLEURA: No significant pleural effusion identified, no pneumothorax apparent. CARDIOVASCULAR: No aortic atherosclerotic calcification present. Normal cardiac size. No pulmonary vascular congestion. OSSEOUS STRUCTURES: No significant abnormalities. VISUALIZED UPPER ABDOMEN: Normal. OTHER FINDINGS: None. IMPRESSION: No active disease.
[2018-05-20] MEDS ORDERED: Pneumococcal 23-Valent Vaccine IM ONE (10:00)
--- NOTE | 2018-05-20 11:12 | PCM.PSYCH ---
Initial Psychiatric Evaluation - Initial Psychiatric Evaluation Type of Admission: Voluntary Legal Status: Capacity Chief Complaint (in patient's own words): I was feeling depressed and suicidal.' History of Present Illness and Precipitating Events: Patient is a 52 year old male who came to the [facility] [place] with auditory hallucinations, depressed mood and suicidal ideation. Patient reports history of few inpatient psychiatric hospitalizations. He was last discharged from [facility] more than a year ago. As per the patient, soon after discharge from the hospital, he went to the rehab. However, he ran out of the prescriptions, and became noncompliant with the meds. Patient reports of drinking a pint of vodka per day, along with 10-15 bags of heroine. He last heroin use was yesterday. 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 Patient has a history of auditory hallucinations, he reports the voices telling him he is worthless and to kill himself. Patient reports history of 2 previous suicide attempts by jumping in front of train and overdosing on pills. Currently he reports feeling irritable and agitated. He reports depressed mood, feelings of hopelessness, helplessness and worthlessness. He reports poor sleep and poor appetite. He reports anhedonia and lack of energy. He reports at times irritability and agitation. He reports visual hallucinations, and paranoia. He reports withdrawal symptoms from heroin including nausea, vomiting, cramps, joint pains and headaches. Past medical history None reported Current Medications: Active Medications Generic Name Dose Route Start Last Admin Trade Name Freq PRN Reason Stop Dose Admin Al Hydrox/Mg Hydrox/Simethicone 30 ml 05/19/18 22:21 Maalox 30 Ml PO TID PRN Indigestion / Heartburn Clonidine HCl 0.1 mg 05/19/18 22:21 Catapres PO Q4 PRN COWS Score More or Equal to 5 Hydroxyzine HCl 25 mg 05/19/18 22:26 Atarax PO Q6 PRN Anxiety Ibuprofen 600 mg 05/19/18 22:21 Motrin Tab PO Q6 PRN Pain, moderate (4-7) Influenza Virus Vaccine 60 mcg 05/21/18 10:00 Flucelvax Quad [id number] Syr IM 05/21/18 10:01 .ONCE ONE Trazodone HCl 50 mg 05/19/18 22:30 05/19/18 22:52 Desyrel PO 50 mg HS MYRANDA Administration Past Psychiatric History - Past Psychiatric History Previous Treatment History: Inpatient Pertinent Medical Hx (Current Medical&Sleep Prob, Allergies): Allergies Allergy/AdvReac Type Severity Reaction Status Date / Time PORK Allergy Verified 05/19/18 18:18 lactose AdvReac Verified 05/19/18 18:18 No Known Home Med 05/19/18 Review of Systems - Review of Systems All systems: reviewed and no additional remarkable complaints except - Psychiatric Psychiatric: Anxiety, Depression, Irritability, Suicidal Ideation Mental Status Examination - Personal Presentation Personal Presentation: Looks stated age - Affect Affect: Constricted, Depressed - Motor Activity Motor Activity: Psychomotor Retardation - Reliability in Providing Information Reliability in Providing Information: Poor, due to altered mood - Speech Speech: Organized - Mood Mood: Depressed, Anxious - Obsessions/Compulsions Obsessions: No Compulsions: No - Cognitive Functions Orientation: Person, Place, Situation, Time Sensorium: Alert Attention/Concentration: Attentive Abstract Thinking: [place] Estimate of Intelligence: Below average Judgement: Imparied, as evidence by: Poor judgement, Imparied, as evidence by: Lack of insight into illness - Risk Risk: Suicidal, Withdrawal, Diminished functioning - Limitations Limitations: Living alone DSM 5 DX - DSM 5 DSM 5 Diagnosis: Bipolar disorder mixed severe with psychotic features Opioid use disorder severe Opioid withdrawal Alcohol use disorder severe - Recommended/Plan of Treatment Treatment Recommendations and Plan of Treatment: Bipolar disorder mixed severe with psychotic features Opioid use disorder severe Opioid withdrawal Alcohol use disorder severe CBT Psychoeducation Supportive therapy and group therapy Trazodone for insomnia Methadone taper for heroin withdrawal Withdrawal medication including clonidine/Bentyl/Zofran/loperamide Hydroxyzine for anxiety Haldol for psychosis Depakote for mood
[2018-05-20] MEDS: Divalproex 250 mg DR Tab PO SCH ×2 (11:42→17:46)
[2018-05-20] MEDS: Multiple Vitamins Tab PO SCH (11:42)
[2018-05-21] MEDS: Divalproex 250 mg DR Tab PO SCH ×2 (09:07→17:34)
[2018-05-21] MEDS: Multiple Vitamins Tab PO SCH (09:07)
[2018-05-21] MEDS ORDERED: Influenza Vaccine 60 mcg/0.5 mL SYR (4YR UP) IM ONE (10:00)
--- NOTE | 2018-05-21 13:37 | PCM.PYCHPN ---
Psychiatric Progress Note - Psychiatric Progress Note Patient seen today, length of contact: 15 min Patient Chief Complaint: I was feeling depressed and suicidal.' Problems Identified/Issues Discussed: Patient was seen and evaluated, chart and discussed with the staff. Patient reports depressed mood and feelings of hopelessness and helplessness. He still reports irritability, agitation and racing thoughts. He reports hearing voices and paranoia. He reports improvement in the withdrawal syndrome but still reports nausea, cramps, joint pain and headaches. He is taking medication but denies any side effects Supportive therapy was provided. Medication Change: Yes Medical Record Reviewed: Yes Mental Status Examination - Cognitive Function Orientation: Person, Place, Situation, Time Memory: Intact Attention: WNL Concentration: Poor Association: Loose Fund of Knowledge: WNL - Mood Mood: Depressed, Anxious - Affect Affect: Constricted, Depressed - Speech Speech: Soft - Formal Thought Process Formal Thought Process: Loosening of associations, Flight of ideas - Suicidal Ideation Suicidal Ideation: No - Homicidal Ideation Homicidal Ideation: No Goal/Treatment Plan - Goal/Treatment Plan Need for Continued Stay: Remain at risks for inpatient hospitalization Progress Toward Problem(s) and Goals/Treatment Plan: Bipolar disorder mixed severe with psychotic features Opioid use disorder severe Opioid withdrawal Alcohol use disorder severe CBT Psychoeducation Supportive therapy and group therapy Trazodone for insomnia Methadone taper for heroin withdrawal Withdrawal medication including clonidine/Bentyl/Zofran/loperamide Hydroxyzine for anxiety Haldol for psychosis Depakote for mood
--- NOTE | 2018-05-21 21:21 | CARD ---
APPROVED REPORT Date of service: 05/19/2018 EKG Measurement Heart [id number] <Conclusion> Sinus bradycardia Right bundle branch block T wave abnormality, consider inferolateral ischemia Abnormal ECG
--- NOTE | 2018-05-22 09:50 | PCM.PYCHPN ---
Psychiatric Progress Note - Psychiatric Progress Note Patient seen today, length of contact: 15 min Patient Chief Complaint: I m feeling depressed.' Problems Identified/Issues Discussed: Patient was seen and evaluated, chart and discussed with the staff. He still reports irritability, agitation and racing thoughts. He reports hearing voices and paranoia. Patient reports depressed mood and feelings of hopelessness and helplessness. He reports improvement in the withdrawal syndrome but still reports nausea, cramps, joint pain and headaches. He is taking medication but denies any side effects Supportive therapy was provided. Medication Change: Yes Medical Record Reviewed: Yes Mental Status Examination - Cognitive Function Orientation: Person, Place, Situation, Time Memory: Intact Attention: WNL Concentration: Poor Association: Loose Fund of Knowledge: WNL - Mood Mood: Depressed, Anxious - Affect Affect: Constricted, Depressed - Speech Speech: Soft - Formal Thought Process Formal Thought Process: Loosening of associations, Flight of ideas - Suicidal Ideation Suicidal Ideation: No - Homicidal Ideation Homicidal Ideation: No Goal/Treatment Plan - Goal/Treatment Plan Need for Continued Stay: Remain at risks for inpatient hospitalization Progress Toward Problem(s) and Goals/Treatment Plan: Bipolar disorder mixed severe with psychotic features Opioid use disorder severe Opioid withdrawal Alcohol use disorder severe CBT Psychoeducation Supportive therapy and group therapy Trazodone for insomnia Methadone taper for heroin withdrawal Withdrawal medication including clonidine/Bentyl/Zofran/loperamide Hydroxyzine for anxiety Haldol for psychosis Depakote for mood
[2018-05-22] MEDS: Divalproex 250 mg DR Tab PO SCH ×2 (10:06→18:03)
[2018-05-22] MEDS: Multiple Vitamins Tab PO SCH (10:06)
[2018-05-23 06:48] VITALS: RESP 18; TEMP 97.6
[2018-05-23] MEDS: Divalproex 250 mg DR Tab PO SCH (09:27)
[2018-05-23] MEDS: Multiple Vitamins Tab PO SCH (09:28)
[2018-05-24] MEDS: Multiple Vitamins Tab PO SCH (10:01)
[2018-05-25] MEDS: Multiple Vitamins Tab PO SCH (09:35)
[2018-05-26 08:32] VITALS: BP 146/96; PULSE 97
[2018-05-26] MEDS: Multiple Vitamins Tab PO SCH (09:28)
--- NOTE | 2018-05-26 12:03 | PCM.PYCHDC ---
Mental Status Examination - Mental Status Examination Orientation: Person, Place, Situation, Time Memory: Intact Mood: Neutral Affect: Constricted Speech: Soft Attention: WNL Concentration: WNL Association: WNL Fund of Knowledge: WNL Formal Thought Process: No Impairment Description of patient's judgement and insight: good, fair Psychotic Thoughts and Behaviors: denies any AVH Suicidal Ideation: No Current Homicidal Ideation?: No Discharge Summary - Discharge Note Reason for Hospitalization: Patient is a 52 year old male who came to the [facility] with auditory hallucinations, depressed mood and suicidal ideation. Patient reports history of few inpatient psychiatric hospitalizations. He was last discharged from [facility] more than a year ago. As per the patient, soon after discharge from the hospital, he went to the rehab. However, he ran out of the prescriptions, and became noncompliant with the meds. Patient reports of drinking a pint of vodka per day, along with 10-15 bags of heroine. He last heroin use was yesterday. 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 Patient has a history of auditory hallucinations, he reports the voices telling him he is worthless and to kill himself. Patient reports history of 2 previous suicide attempts by jumping in front of train and overdosing on pills. Currently he reports feeling irritable and agitated. He reports depressed mood, feelings of hopelessness, helplessness and worthlessness. He reports poor sleep and poor appetite. He reports anhedonia and lack of energy. He reports at times irritability and agitation. He reports visual hallucinations, and paranoia. He reports withdrawal symptoms from heroin including nausea, vomiting, cramps, joint pains and headaches. Consultations:: List each consultation separately and include: 1. Reason for request. 2. Findings. 3. Follow-up Summary of Hospital Course include:: 1. Description of specific treatment plan utilized for patients during their course of treatmen. 2. Summarize the time-co urse for resolution of acute symptoms and/or regressed behaviors. 3. Describe issues identified and worked on during hospitalization. 4. Describe medication utilized. 5. Describe medical problems identified and treated. 6. Reassessment of suicide risk Summary of Hospital Course: Patient is a 52 year old male who came to the [facility] with auditory hallucinations, depressed mood and suicidal ideation. Patient reports history of few inpatient psychiatric hospitalizations. He was last discharged from [facility] more than a year ago. As per the patient, soon after discharge from the hospital, he went to the rehab. However, he ran out of the prescriptions, and became noncompliant with the meds. Patient reports of drinking a pint of vodka per day, along with 10-15 bags of heroine. He last heroin use was yesterday. 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 Patient has a history of auditory hallucinations, he reports the voices telling him he is worthless and to kill himself. Patient reports history of 2 previous suicide attempts by jumping in front of train and overdosing on pills. Currently he reports feeling irritable and agitated. He reports depressed mood, feelings of hopelessness, helplessness and worthlessness. He reports poor sleep and poor appetite. He reports anhedonia and lack of energy. He reports at times irritability and agitation. He reports visual hallucinations, and paranoia. He reports withdrawal symptoms from heroin including nausea, vomiting, cramps, joint pains and headaches. Past medical history None reported - Final Diagnosis (DSM 5) Condition upon Discharge: STABLE DSM 5: Bipolar disorder mixed severe with psychotic features Opioid use disorder severe Opioid withdrawal Alcohol use disorder severe Disposition: HOME/ ROUTINE Follow-up Treatment Plan: Bipolar disorder mixed severe with psychotic features Opioid use disorder severe Opioid withdrawal Alcohol use disorder severe CBT Psychoeducation Supportive therapy and group therapy Trazodone for insomnia Methadone taper for heroin withdrawal Withdrawal medication including clonidine/Bentyl/Zofran/loperamide Hydroxyzine for anxiety Haldol for psychosis Depakote for mood Prescriptions/Medication Reconciliation: Benztropine [Cogentin] 1 mg PO BID #60 tab Haloperidol [Haldol] 10 mg PO BID #60 tab Mirtazapine [Remeron] 15 mg PO HS #30 tab Sertraline [Zoloft] 50 mg PO DAILY #30 tab traZODone [Desyrel] 100 mg PO HS #30 tab
== END 2018-05-26 12:24 | disposition home or self-care (01) | DRG 885 ==
LOC: C.ER 16:53 → C.5E 20:54
PROC: GZ56ZZZ Individual Psychotherapy, Supportive (ICD-10-PCS; principal; 2018-05-19)
DX: F31.64 Bipolar disorder, current episode mixed, severe, with psychotic features (principal); F11.23 Opioid dependence with withdrawal; R45.851 Suicidal ideations; F10.10 Alcohol abuse, uncomplicated; F41.9 Anxiety disorder, unspecified; G47.00 Insomnia, unspecified; I25.10 Atherosclerotic heart disease of native coronary artery without angina pectoris; Z91.14 Patient's other noncompliance with medication regimen; Z95.2 Presence of prosthetic heart valve

== ENCOUNTER 2018-06-26 03:11 | Inpatient (IN) | payer SELFPAY ==
--- NOTE | 2018-06-26 03:29 | C.PDOC ---
History Of Present Illness Patient presents to the ER stating he is depressed. He walked to a firehouse and told them he wants to kill himself, no plan. Patient has been off his meds for a while. Denies physical complaints at this time. Time Seen by Provider: 06/26/18 03:29 Chief Complaint (Nursing): Psychiatric Evaluation History Per: Patient History/Exam Limitations: no limitations Onset/Duration Of Symptoms: Hrs Current Symptoms Are (Timing): Still Present Suicide/Self Injury Attempted (Context): None Modifying Factor(s): None Severity: None Pain Scale Rating Of: 0 Associated Symptoms: Depression, Suicidal Thoughts. denies: Suicidal Plan Involuntary Hold By: None Recent travel outside of the [place]: No Past Medical History Reviewed: Historical Data, Nursing Documentation, Vital Signs Primary Care Provider: FAMILY PROVIDER,NO - Medical History PMH: Anxiety, Bipolar Disorder, Depression, HTN Denies: Diabetes, Hepatitis, HIV, Chronic Kidney Disease, Seizures, Sexually Transmitted Disease - [facility] DETOXIFICATION SERVICES FOR SUBSTANCE ABUSE TREATMENT (01/26/17) GROUP PSYCHOTHERAPY (01/26/17) INDIV PSYCHOTHERAPY FOR SUBSTANCE ABUSE TREATMENT, SUPPORT (01/26/17) INDIVIDUAL PSYCHOTHERAPY, SUPPORTIVE (05/19/18) MEDICATION MANAGEMENT (01/26/17) Family History: States: No Known Family Hx - Social History Hx Alcohol Use: Yes Hx Substance Use: Yes - Immunization History Hx Tetanus Toxoid Vaccination: No Hx Influenza Vaccination: No Hx Pneumococcal Vaccination: No Review Of Systems Constitutional: Negative for: Fever, Chills Cardiovascular: Negative for: Chest Pain, Palpitations Respiratory: Negative for: Cough, Shortness of Breath Gastrointestinal: Negative for: Nausea, Vomiting Neurological: Negative for: Weakness, Numbness Psych: Positive for: Depression, Suicidal ideation Physical Exam - Physical Exam Appears: Non-toxic Skin: Warm, Dry Head: Normacephalic Oral Mucosa: Moist Chest: Symmetrical, No Tenderness Cardiovascular: Rhythm Regular Respiratory: No Rales, No Rhonchi, No Wheezing Gastrointestinal/Abdominal: Soft, No Tenderness Extremity: Normal ROM Neurological/Psych: Oriented x3 ED Course And Treatment - Laboratory Results Result Diagrams: 06/26/18 03:57 06/26/18 03:57 Progress Note: Blood work and urinalysis ordered. Crisis notified. Disposition Discussed With : Griffin Nelson Comment: accepted the pt on his service and took over the care at 6:30 AM Doctor Will See Patient In The: Hospital Counseled Patient/Family Regarding: Studies Performed, Diagnosis - Disposition Disposition: HOSPITALIZED Disposition Time: 03:29 Condition: FAIR Forms: [facility] (Qatari) - POA Present On Arrival: None - Clinical Impression Clinical Impression: Major depression, Polysubstance abuse - Scribe Statement The provider has reviewed the documentation as recorded by the Scribe Davonte Torres All medical record entries made by the Scribe were at my direction and personally dictated by me. I have reviewed the chart and agree that the record accurately reflects my personal performance of the history, physical exam, medical decision making, and the department course for this patient. I have also personally directed, reviewed, and agree with the discharge instructions and disposition. Decision To Admit - Pt Status Changed To: Hospital Disposition Of: Inpatient - Admit Certification Admit to Inpatient:: After my assessment, the patient will require hospitalization for at least two midnights. This is because of the severity of symptoms shown, intensity of services needed, and/or the medical risk in this patient being treated as an outpatient. - InPatient: Physician Admission Certification: I certify that this patient requires 2 or more midnights of care for the following reason:: After my assessment, the patient will require hospitalization for at least two midnights. This is because of the severity of symptoms shown, intensity of services needed, and/or the medical risk in this patient being treated as an outpatient. - . Bed Request Type: Psychiatry Admitting Physician: Griffin Nelson Patient Diagnosis: Major depression, Polysubstance abuse
[2018-06-26 04:00] LABS: BASO # 0.1 K/uL (0.0-0.2); EOS # 0.2 K/uL (0.0-0.7); EOS % 3.1 % (0.0-4.0); HEMOGLOBIN 14.3 g/dL (12.0-18.0); LYMPH # 2.6 K/uL (1.0-4.3); LYMPH % 35.4 % (20.0-40.0); MEAN CELL VOLUME 90.1 fL (80.0-94.0); MEAN CORPUSCULAR HEMOGLOBIN 30.8 pg (27.0-31.0); MEAN CORPUSCULAR HGB CONC 34.1 g/dL (33.0-37.0); MEAN PLATELET VOLUME 8.3 fL (7.2-11.7); MONO # 0.6 K/uL (0.0-0.8); MONO % 7.6 % (0.0-10.0); NEUT # 3.9 K/uL (1.8-7.0); NEUT % 52.9 % (50.0-75.0); NRBC % 0.1 % (0.0-2.0); RBC 4.64 Mil/uL (4.40-5.90); RED CELL DISTRIBUTION WIDTH 13.2 % (11.5-14.5); WHITE BLOOD COUNT 7.4 K/uL (4.8-10.8)
[2018-06-26 04:18] LABS: ALB/GLOB RATIO 1.3 (1.0-2.1); ALBUMIN 4.1 g/dL (3.5-5.0); ALT/SGPT 29 U/L (21-72); AST/SGOT 34 U/L (17-59); BLOOD UREA NITROGEN 22 mg/dL (9-20); CALCIUM 9.2 mg/dl (8.6-10.4); GFR NON-AFRICAN AMERICAN > 60
[2018-06-26 04:31] LABS: URINE BILIRUBIN NEGATIVE (NEGATIVE); URINE BLOOD NEGATIVE (NEGATIVE); URINE CLARITY Clear (Clear); URINE COLOR Yellow (YELLOW); URINE GLUCOSE (UA) NORMAL (Normal); URINE LEUKOCYTE ESTERASE NEG Leu/uL (Negative); URINE PROTEIN NEGATIVE (NEGATIVE); URINE UROBILINOGEN NORMAL mg/dL (0.2-1.0)
[2018-06-26 04:47] LABS: BARBITURATES, UR NEGATIVE (NEGATIVE); PHENCYCLIDINE, UR NEGATIVE (NEGATIVE)
[2018-06-26 05:36] LABS: BENZODIAZEPINES, UR POSITIVE (NEGATIVE); OPIATES, UR POSITIVE (NEGATIVE)
[2018-06-26 07:33] VITALS: O2SAT 98
--- NOTE | 2018-06-26 08:19 | PCM.BM ---
<Ashley Andre - Last Filed: 06/26/18 08:16> Treatment Plan Problems - Problems identified on initial assessmt Medication Nonadherence Date Initiated: 06/26/18 Time Initiated: 08:18 Assessment reference: NA Status: Active Feelings of Worthlessness Date Initiated: 06/26/18 Time Initiated: 08:18 Assessment reference: NA Status: Active Altered Sleep Patterns Date Initiated: 06/26/18 Time Initiated: 08:18 Assessment reference: NA Status: Active Treatment assets and liabiliti Patient Assests: adapts well, cooperative, ADL independent, physically healthy, negotiates basic needs, cognitively intact Patient Liabilities: live alone, financial problems, poor support system, substance abuse (Opiates/Cocaine), medical problems (HTN/cardiac Valve Sx), visual impairment - Milieu Protocol Maintain good personal hygiene: daily Encourage regular showers, daily Remind patient to perform daily oral care, daily Assist patient to perform ADL's (Self) Conduct patient checks and document Observation sheet: Q15 minutes (Safety) Maintain personal safety: every shift Educate patient to report safety concerns to staff, every shift Monitor environment for contraband/sharps Medication safety: Monitor for expected outcome, potential side effects: every shift, Assess barriers to learning: every shift, Assess readiness for medication education: every shift <Aleida Sorenson - Last Filed: 06/27/18 11:20> - Diagnosis (1) Bipolar affect, depressed Status: Acute Interventions: 06/27/18 11:19 * Assess/adjust medications daily and /or as needed * See patient on an individual basis 7x/week to assess level of manic behaviors and stability * Discuss risks, benefits, side effects and alternatives of medications * (2) Opioid use disorder, severe, dependence Status: Acute Interventions: 06/27/18 11:20 * Assess 7x/week regarding severity of withdrawal * Educate regarding risks, benefits, side effects and alternatives of medications * Use Motivational Interviewing for abstinence * Use CBT for relapse prevention * Medication management for withdrawal symptoms * Encourage medication assisted treatment * <Cheryle Gonzalez - Last Filed: 06/27/18 14:20> Family Contact Family involvement: Patient does not wish Family/SO involvement Family contact: Patient declines to allow family contact at present - Goals for Treatment Patient goals for treatment: "I want to go to a rehab program." Discharge/Continuing Care - Education Needs Education Needs: Patient Medication, Patient Diagnosis/Disease Process, Patient Coping Skills, Patient Placement options, Patient Community resources - Discharge Discharge Criteria: Free of Suicidal thoughts, Free of agitation, Normal sleep pattern, Ability to care for self, No longer exhibiting s/s of withdrawal, Reduction of target symptoms Discharge to:: Substance Abuse Rehab - Treatment Team Participation Discussed with Family/SO: No Was Patient/Family/SO present at Treatment Team Meeting: Yes
--- NOTE | 2018-06-26 10:00 | PCM.PSYCH ---
Initial Psychiatric Evaluation - Initial Psychiatric Evaluation Type of Admission: Voluntary Legal Status: Capacity Chief Complaint (in patient's own words): I was feeling depressed and suicidal.' History of Present Illness and Precipitating Events: Pt is a 52 year old male with PMHx of major depression and polysubstance abuse disorder who presented to [facility] with depressed and and suicidal ideation. 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 Pt was recently discharged from [facility] few weeks ago. As per the patient he did not follow-up with any psychiatrist. He stopped taking his medication and relapsed on heroin. He reports that he is abusing 10-12 bags of heroin along with cocaine and benzos. Yesterday he became increasingly depressed and no suicidal ideation so he came to the hospital to get help. He reports depressed mood, feelings of hopelessness and helplessness. He also reports poor sleep and poor appetite. He appeared disheveled and unkempt and withdrawn. He reports withdrawal symptoms from heroin including nausea, cramps, joint pain, headaches and anxiety. He also sometimes irritability and agitation. However he denies any auditory or visual hallucinations or any paranoia. PMHx: Major depressive disorder, suicidal attempt, polysubstance use Current Medications: Active Medications Generic Name Dose Route Start Last Admin Trade Name Freq PRN Reason Stop Dose Admin Pneumococcal Polyvalent Vaccine 0.5 ml 06/29/18 10:00 Pneumovax 23 Vaccine IM 06/29/18 10:01 .ONCE ONE Past Psychiatric History - Past Psychiatric History Previous Treatment History: Inpatient Pertinent Medical Hx (Current Medical&Sleep Prob, Allergies): Allergies Allergy/AdvReac Type Severity Reaction Status Date / Time PORK Allergy RASH Verified 06/26/18 03:20 lactose AdvReac RASH Verified 06/26/18 03:20 Benztropine [Cogentin] 1 mg PO BID #60 tab 05/26/18 Haloperidol [Haldol] 10 mg PO BID #60 tab 05/26/18 Mirtazapine [Remeron] 15 mg PO HS #30 tab 05/26/18 Sertraline [Zoloft] 50 mg PO DAILY #30 tab 05/26/18 traZODone [Desyrel] 100 mg PO HS #30 tab 05/26/18 Review of Systems - Review of Systems All systems: reviewed and no additional remarkable complaints except - Psychiatric Psychiatric: Anhedonia, Anxiety, Behavioral Changes, Change in Appetite, Depression, Difficulty Concentrating, Irritability, Suicidal Ideation Mental Status Examination - Personal Presentation Personal Presentation: Looks stated age - Affect Affect: Constricted, Depressed - Motor Activity Motor Activity: Calm - Reliability in Providing Information Reliability in Providing Information: Poor, due to altered mood - Speech Speech: Organized - Mood Mood: Depressed, Anxious - Formal Thought Process Formal Thought Process: No Impairment - Obsessions/Compulsions Obsessions: No Compulsions: No - Cognitive Functions Orientation: Person, Place, Situation, Time Sensorium: Alert Attention/Concentration: Attentive Abstract Thinking: [place] Estimate of Intelligence: Below average Judgement: Imparied, as evidence by: Poor judgement, Imparied, as evidence by: Lack of insight into illness - Risk Risk: Suicidal, Withdrawal, Diminished functioning - Limitations Limitations: Living alone DSM 5 DX - DSM 5 DSM 5 Diagnosis: Bipolar disorder depressed severe without psychotic features Opioid use disorder severe Opioid withdrawal Cocaine use disorder severe Sedated/hypnotic use disorder severe - Recommended/Plan of Treatment Treatment Recommendations and Plan of Treatment: Bipolar disorder depressed severe without psychotic features Opioid use disorder severe Opioid withdrawal Cocaine use disorder severe Sedated/hypnotic use disorder severe CBT Supportive therapy Psychoeducation Methadone taper for opiate withdrawal Withdrawal medications Trazodone for insomnia Hydroxyzine for anxiety Paxil for depression Remeron for depression Neurontin for augmentation
[2018-06-26] MEDS ORDERED: Aluminum Hydroxide/Magnesium Hydroxide Susp (30 mL) PO PRN (13:20)
--- NOTE | 2018-06-28 16:11 | PCM.PYCHPN ---
Psychiatric Progress Note - Psychiatric Progress Note Patient seen today, length of contact: 15 min Patient Chief Complaint: I m feeling depressed.' Problems Identified/Issues Discussed: Patient was seen and evaluated, chart reviewed and discussed the staff. As per staff he remained isolative and withdrawn and confined to his room. He still reports depressed mood and feelings of worthlessness. He reports poor sleep and poor appetite. He reports withdrawal symptoms including cramps, joint pains, anxiety and headaches. He denies any auditory hallucinations or any paranoia. He is taking medication but denies any side effects. He needs to stay longer for further stabilization. Supportive therapy was given. Medication Change: Yes Medical Record Reviewed: Yes Mental Status Examination - Cognitive Function Orientation: Person, Place, Situation, Time Memory: Intact Attention: WNL Concentration: Poor Association: WNL Fund of Knowledge: Poor - Mood Mood: Depressed, Anxious - Affect Affect: Constricted, Depressed - Speech Speech: Soft - Formal Thought Process Formal Thought Process: No Impairment - Suicidal Ideation Suicidal Ideation: No - Homicidal Ideation Homicidal Ideation: No Goal/Treatment Plan - Goal/Treatment Plan Need for Continued Stay: Remain at risks for inpatient hospitalization Progress Toward Problem(s) and Goals/Treatment Plan: Bipolar disorder depressed severe without psychotic features Opioid use disorder severe Opioid withdrawal Cocaine use disorder severe Sedated/hypnotic use disorder severe CBT Supportive therapy Psychoeducation Methadone taper for opiate withdrawal Withdrawal medications Trazodone for insomnia Hydroxyzine for anxiety Paxil for depression Remeron for depression Neurontin for augmentation - Smoking Cessation Smoking Cessation Initiated: No
--- NOTE | 2018-06-28 16:23 | PCM.PYCHPN ---
Psychiatric Progress Note - Psychiatric Progress Note Patient seen today, length of contact: 15 min Patient Chief Complaint: I am feeling little better. Problems Identified/Issues Discussed: Patient seen, chart reviewed, case discussed with the staff. Issues related to illness and treatment were discussed with the patient and staff. Reported compliant with treatment with no adverse effects. Tolerating treatment very well. Patient reported feeling little better. Patient still has some withdrawal symptoms including sweating, abdominal cramps, nausea and body aches. Staff reported that patient was isolative and is not attending groups. Encouraged patient to attend groups. Mood reported as okay. Affect appropriate. Patient needs more time for stabilization. Aftercare discussed with the patient. Denied any delusions, auditory or visual hallucinations, no suicidal ideations or homicidal ideations at the time of evaluation. Medical Problems: None reported Diagnostic Results: Reviewed DSM 5 Symptoms Update: Some improvement with treatment. Medication Change: No Medical Record Reviewed: Yes Mental Status Examination - Cognitive Function Orientation: Person, Place, Situation, Time Memory: Intact Attention: WNL Concentration: WNL Association: [facility] Fund of Knowledge: [facility] Decription of patient's judgement and insights: Fair - Mood Mood: Depressed - Affect Affect: Depressed - Speech Speech: Soft - Formal Thought Process Formal Thought Process: No Impairment Psychotic Thoughts and Behaviors: None - Suicidal Ideation Suicidal Ideation: No - Homicidal Ideation Homicidal Ideation: No Goal/Treatment Plan - Goal/Treatment Plan Need for Continued Stay: Remain at risks for inpatient hospitalization, Discharge may exacerbated symptoms, Severe functional impairment Progress Toward Problem(s) and Goals/Treatment Plan: For relapse prevention. NE for abstinence. Continue treatment as before. Estimated Date of D/C: 07/02/18 - Smoking Cessation Smoking Cessation Initiated: No
[2018-06-29] MEDS ORDERED: Pneumococcal 23-Valent Vaccine IM ONE (10:00)
--- NOTE | 2018-06-30 12:06 | PCM.PYCHPN ---
Psychiatric Progress Note - Psychiatric Progress Note Patient seen today, length of contact: 15 min Patient Chief Complaint: I m feeling depressed.' Problems Identified/Issues Discussed: Patient was seen and evaluated, chart reviewed and discussed the staff. As per staff he remained isolative and withdrawn and confined to his room. He still reports depressed mood and feelings of worthlessness. He reports poor sleep and poor appetite. He reports withdrawal symptoms including cramps, joint pains, anxiety and headaches. He denies any auditory hallucinations or any paranoia. He is taking medication but denies any side effects. He needs to stay longer for further stabilization. Supportive therapy was given. Medication Change: No Medical Record Reviewed: Yes Mental Status Examination - Cognitive Function Orientation: Person, Place, Situation, Time Memory: Intact Attention: WNL Concentration: WNL Association: WNL Fund of Knowledge: WNL - Mood Mood: Depressed - Affect Affect: Depressed - Speech Speech: Soft - Formal Thought Process Formal Thought Process: No Impairment - Suicidal Ideation Suicidal Ideation: No - Homicidal Ideation Homicidal Ideation: No Goal/Treatment Plan - Goal/Treatment Plan Need for Continued Stay: Remain at risks for inpatient hospitalization, Discharge may exacerbated symptoms, Severe functional impairment Progress Toward Problem(s) and Goals/Treatment Plan: Bipolar disorder depressed severe without psychotic features Opioid use disorder severe Opioid withdrawal Cocaine use disorder severe Sedated/hypnotic use disorder severe CBT Supportive therapy Psychoeducation Methadone taper for opiate withdrawal Withdrawal medications Trazodone for insomnia Hydroxyzine for anxiety Paxil for depression Remeron for depression Neurontin for augmentation Estimated Date of D/C: 07/02/18
[2018-07-01 07:07] VITALS: TEMP 98.1
--- NOTE | 2018-07-01 10:21 | PCM.PYCHPN ---
Psychiatric Progress Note - Psychiatric Progress Note Patient seen today, length of contact: 15 min Patient Chief Complaint: I m feeling depressed.' Problems Identified/Issues Discussed: Patient was seen and evaluated, chart reviewed and discussed the staff. As per staff he remained isolative and withdrawn and confined to his room. He still reports depressed mood and feelings of worthlessness. He reports poor sleep and poor appetite. He reports withdrawal symptoms including cramps, joint pains, anxiety and headaches. He denies any auditory hallucinations or any paranoia. He is taking medication but denies any side effects. He needs to stay longer for further stabilization. Supportive therapy was given. Medication Change: No Medical Record Reviewed: Yes Mental Status Examination - Cognitive Function Orientation: Person, Place, Situation, Time Memory: Intact Attention: WNL Concentration: Poor Association: Loose Fund of Knowledge: Poor - Mood Mood: Depressed, Anxious - Affect Affect: Constricted, Depressed - Speech Speech: Soft - Formal Thought Process Formal Thought Process: No Impairment - Suicidal Ideation Suicidal Ideation: No - Homicidal Ideation Homicidal Ideation: No Goal/Treatment Plan - Goal/Treatment Plan Need for Continued Stay: Remain at risks for inpatient hospitalization, Discharge may exacerbated symptoms, Severe functional impairment Progress Toward Problem(s) and Goals/Treatment Plan: Bipolar disorder depressed severe without psychotic features Opioid use disorder severe Opioid withdrawal Cocaine use disorder severe Sedated/hypnotic use disorder severe CBT Supportive therapy Psychoeducation Methadone taper for opiate withdrawal Withdrawal medications Trazodone for insomnia Hydroxyzine for anxiety Paxil for depression Remeron for depression Neurontin for augmentation Estimated Date of D/C: 07/02/18
--- NOTE | 2018-07-01 14:10 | RAD ---
HISTORY: Transfer to another facility COMPARISON: Chest x-ray performed 05/19/18 TECHNIQUE: Chest PA and lateral, 2 views FINDINGS: LUNGS: No focal consolidation. Please note that chest x-ray has limited sensitivity for the detection of pulmonary masses. PLEURA: No significant pleural effusion identified. No definite pneumothorax . CARDIOVASCULAR: The cardiomediastinal silhouette appears within normal limits of size. No atherosclerotic calcification present. OSSEOUS STRUCTURES: No acute osseous abnormality identified. VISUALIZED UPPER ABDOMEN: Unremarkable. OTHER FINDINGS: None. IMPRESSION: No acute findings identified.
[2018-07-02 06:33] VITALS: RESP 18
[2018-07-03 06:44] VITALS: BP 123/78; PULSE 67
--- NOTE | 2018-07-03 09:32 | PCM.PYCHDC ---
Mental Status Examination - Mental Status Examination Orientation: Person, Place, Situation, Time Memory: Intact Mood: Neutral Affect: Constricted Speech: Soft Attention: WNL Concentration: WNL Association: WNL Fund of Knowledge: WNL Formal Thought Process: No Impairment Description of patient's judgement and insight: good, fair Psychotic Thoughts and Behaviors: denies any AVH Suicidal Ideation: No Current Homicidal Ideation?: No Discharge Summary - Discharge Note Reason for Hospitalization: Pt is a 52 year old male with PMHx of major depression and polysubstance abuse disorder who presented to [facility] with depressed and and suicidal ideation. Health Social Work Professor is familiar with this patient. Pt was recently discharged from [facility] few weeks ago. As per the patient he did not follow-up with any psychiatrist. He stopped taking his medication and relapsed on heroin. He reports that he is abusing 10-12 bags of heroin along with cocaine and benzos. Yesterday he became increasingly depressed and no suicidal ideation so he came to the hospital to get help. He reports depressed mood, feelings of hopelessness and helplessness. He also reports poor sleep and poor appetite. He appeared disheveled and unkempt and withdrawn. He reports withdrawal symptoms from heroin including nausea, cramps, joint pain, headaches and anxiety. He also sometimes irritability and agitation. However he denies any auditory or visual hallucinations or any paranoia. Consultations:: List each consultation separately and include: 1. Reason for request. 2. Findings. 3. Follow-up Summary of Hospital Course include:: 1. Description of specific treatment plan utilized for patients during their course of treatmen. 2. Summarize the time- course for resolution of acute symptoms and/or regressed behaviors. 3. Describe issues identified and worked on during hospitalization. 4. Describe medication utilized. 5. Describe medical problems identified and treated. 6. Reassessment of suicide risk Summary of Hospital Course: Pt is a 52 year old male with PMHx of major depression and polysubstance abuse disorder who presented to [facility] with depressed and and suicidal ideation. Health Social Work Professor is familiar with this patient. Pt was recently discharged from [facility] few weeks ago. As per the patient he did not follow-up with any psychiatrist. He stopped taking his medication and relapsed on heroin. He reports that he is abusing 10-12 bags of heroin along with cocaine and benzos. Yesterday he became increasingly depressed and no suicidal ideation so he came to the hospital to get help. He reports depressed mood, feelings of hopelessness and helplessness. He also reports poor sleep and poor appetite. He appeared disheveled and unkempt and withdrawn. He reports withdrawal symptoms from heroin including nausea, cramps, joint pain, headaches and anxiety. He also sometimes irritability and agitation. However he denies any auditory or visual hallucinations or any paranoia. PMHx: Major depressive disorder, suicidal attempt, polysubstance use - Diagnosis (1) Bipolar affect, depressed Current Visit: Yes Status: Acute (2) Opioid use disorder, severe, dependence Current Visit: No Status: Acute - Final Diagnosis (DSM 5) Condition upon Discharge: FAIR DSM 5: Bipolar disorder depressed severe without psychotic features Opioid use disorder severe Opioid withdrawal Cocaine use disorder severe Sedated/hypnotic use disorder severe Disposition: HOME/ ROUTINE Follow-up Treatment Plan: Bipolar disorder depressed severe without psychotic features Opioid use disorder severe Opioid withdrawal Cocaine use disorder severe Sedated/hypnotic use disorder severe CBT Supportive therapy Psychoeducation Methadone taper for opiate withdrawal Withdrawal medications Trazodone for insomnia Hydroxyzine for anxiety Paxil for depression Remeron for depression Neurontin for augmentation Prescriptions/Medication Reconciliation: Mirtazapine [Remeron] 30 mg PO HS #30 tab - Smoking Cessation Smoking Cessation Medication prescribed: No - Antipsychotic Medications Pt discharged on 2 or more routine antipsychotic medications: No
== END 2018-07-03 10:44 | disposition home or self-care (01) | DRG 897 ==
LOC: C.ER 03:11 → C.5E 06:28
PROVIDERS: ADMIT Psychiatry & Neurology Psychiatry; ATTEND Psychiatry & Neurology Psychiatry
PROC: GZ56ZZZ Individual Psychotherapy, Supportive (ICD-10-PCS; principal; 2018-06-26)
DX: F11.23 Opioid dependence with withdrawal (principal); F31.4 Bipolar disorder, current episode depressed, severe, without psychotic features; R45.851 Suicidal ideations; F41.9 Anxiety disorder, unspecified; G47.00 Insomnia, unspecified; I10 Essential (primary) hypertension; F19.10 Other psychoactive substance abuse, uncomplicated; F14.10 Cocaine abuse, uncomplicated